=== PATIENT | male | born 1995 | race Native Hawaiian/Other Pacific Islander ===

== ENCOUNTER 2017-01-25 02:51 | Emergency (ER) | payer BC ==
[2017-01-25] MEDS ORDERED: MOTRIN PO ONE (07:47)
[2017-01-25] MEDS ORDERED: KEFLEX PO ONE (07:47)
--- NOTE | 2017-01-25 07:58 | Emergency Department Report ---
HPI - General Chief Complaint: Skin/Abscess/Foreign Body Time Seen by Provider: 01/25/17 07:15 - HPI HPI: Patient is a 21-year-old male who presents to ED complaining of pain to his left great toe 2 days. Patient states his great toe is become red and tender to touch. Patient states he did not have any trauma to the toe or any injuries. He denies fever/chills/9/vomiting difficulty walking ED Past Medical Hx - Past Medical History Previous Medical History?: Yes Hx Psychiatric Treatment: Yes (schizo affective bipolar) Hx Asthma: Yes (as child) - Surgical History Past Surgical History?: Yes Additional Surgical History: tear ducts - Social History Smoking Status: Never Smoker Substance Use Type: None - Medications Home Medications: Home Medications Medication Instructions Recorded Confirmed Last Taken Type Cephalexin [Keflex] 500 mg PO BID #12 capsule 01/25/17 Unknown Rx Ibuprofen [Motrin 800 MG tab] 800 mg PO TID #20 tablet 01/25/17 Unknown Rx ED Review of Systems ROS: Stated complaint: INGROWN TOE NAIL Other details as noted in HPI Constitutional: denies: chills, fever Eyes: denies: eye pain, eye discharge, vision change ENT: denies: ear pain, throat pain Respiratory: denies: cough, shortness of breath, wheezing Cardiovascular: denies: chest pain, palpitations Endocrine: no symptoms reported Gastrointestinal: denies: abdominal pain, nausea, diarrhea Genitourinary: denies: urgency, dysuria Musculoskeletal: denies: back pain, joint swelling, arthralgia Skin: denies: rash, lesions Neurological: denies: headache, weakness, paresthesias Psychiatric: denies: anxiety, depression Hematological/Lymphatic: denies: easy bleeding, easy bruising Physical Exam - Physical Exam Vital Signs: Vital Signs 01/25/17 02:56 Respiratory 20 Rate Blood Pressure 136/94 Physical Exam: GENERAL: Alert and oriented x3, no apparent distress, Normal Gait, atraumatic. HEAD: Head is normocephalic and a-traumatic. LUNGS: Symetrical with respiration, No wheezing, no rales or crackles, CTAB. HEART: S1, S2 present, regular rate and rhythm without murmur, no rubs, no gallops. Non tender to palpation EXTREMITIES/MUSCULOSKELETAL: No cyanosis, clubbing, rash, lesions or edema. Full ROM bilaterally. UE/LE Pulses 2+ bilaterally. Left great toe mildly tender to palpation, mildly erythematous at the tip of the toe nail. Not fluctuant, capillary refill 2 seconds NEUROLOGIC: The patient is cooperative with no focal neurologic deficits. Normal speech. Normal sensation in bilateral upper and lower extremities, No loss of sensation, . PSYCHIATRIC: Mood is congruent with affect, denies suicidal or homicidal ideations. SKIN: Warm and dry, No lesions, No ulceration or induration present. ED Course Vital Signs 01/25/17 02:56 Respiratory 20 Rate Blood Pressure 136/94 ED Medical Decision Making - Medical Decision Making 19-year-old male presents with paronychia of the great toe ED course: Discussed with patient that mild presentation and will be discharged home on some antibiotics . Discussed the patient to keep warm compresses 3 times a day. Discussed if worsening symptoms or joint otherwise follow-up with primary care physician. Discussed to take medication as prescribed Vital signs are normal patient distress patient understands all instructions given Critical care attestation.: If time is entered above; I have spent that time in minutes in the direct care of this critically ill patient, excluding procedure time. ED Disposition Clinical Impression: Paronychia of great toe, left Disposition: DC-01 TO HOME OR SELFCARE Is pt being admited?: No Does the pt Need Aspirin: No Condition: Stable Instructions: Paronychia (ED) Prescriptions: Cephalexin [Keflex] 500 mg PO BID #12 capsule Ibuprofen [Motrin 800 MG tab] 800 mg PO TID #20 tablet Referrals: PRIMARY CARE, [Primary Care Provider] - 3-5 Days [facility] [Outside] - 3-5 Days [facility] [Outside] - 3-5 Days [facility] [Outside] - 3-5 Days Forms: Accompanied Note, Work/School Release Form(ED) Time of Disposition: 07:59
[2017-01-25 08:48] VITALS: BP 140/83
== END 2017-01-25 08:48 | disposition home or self-care (01) ==
LOC: ED 02:51
DX: L03.032 Cellulitis of left toe (principal); F20.9 Schizophrenia, unspecified; J45.909 Unspecified asthma, uncomplicated; Z91.011 Allergy to milk products
CPT/HCPCS: 99282